=== PATIENT | female | born 1965 | race Caucasian/White ===

== ENCOUNTER 2017-12-06 07:41 | Emergency (ER) | payer MEDICAID, SELFPAY ==
[2017-12-06 08:00] VITALS: BP 125/46; PULSE 121; RESP 22; TEMP 35; O2SAT 95; BMI 22.7
[2017-12-06 09:12] LABS: Adenovirus,PCR Not Detected (NotDetected); Bordetella Pertussis Not Detected (NotDetected); Chlamydophila Pneumoniae, PCR Not Detected (NotDetected); Coronavirus 229E Not Detected (NotDetected); Coronavirus NL63 Not Detected (NotDetected); Coronavirus OC43 Not Detected (NotDetected); Coronovirus HKU1,PCR Not Detected (NotDetected); Human Metapneumovirus Not Detected (NotDetected); Influenza A, PCR Not Detected (NotDetected); Influenza AH1, 2009 Not Detected (NotDetected); Influenza AH1, PCR Not Detected (NotDetected); Influenza AH3,PCR Not Detected (NotDetected); Mycoplasma Pneumoniae, PCR Not Detected (NotDected); Parainfluenza 1, PCR Not Detected (NotDetected); Parainfluenza 2, PCR Not Detected (NotDetected); Parainfluenza 3, PCR Not Detected (NotDetected); Parainfluenza 4, PCR Not Detected (NotDetected); Respiratory Syncytial Virus Not Detected (NotDetected); Rhinovirus/Enterovirus Not Detected (NotDetected)
--- NOTE | 2017-12-06 09:22 | HMH.EDGENADL ---
ED Disposition Clinical Impression: Viral syndrome, Influenza A virus not detected, Tobacco use Disposition: Home, Self-Care Condition on Discharge: Good Additional Instructions: I discussed with the patient the possibility of her being flu positive with with the test being negative due to her exposure boyfriend for the last 4 days. She is agreeable for undergoing respiratory panel and follow-up with a primary care physician she verbalized understanding. He was willing to start medications. 1-stop smoking. 2-start Tamiflu soon as possible. 3-amoxacillin 500 3 times daily to prevent secondary bacterial infection. 4--Tessalon Perles as needed for cough. 5-Motrin 600 every 6 as needed for body aches. 6-follow-up with Dr. Church in a.m. on her respiratory panel results. 7-to return if not better or feeling worse for reexamination. Prescriptions: Benzonatate [Tessalon Perle 100mg Cap] 100 mg PO Q4HP PRN #21 cap PRN Reason: Cough Ibuprofen [Motrin 600mg Tablet] 600 mg PO Q6HP PRN #20 tab PRN Reason: Moderate Pain Oseltamivir Phosphate [Tamiflu 75mg Capsule] 75 mg PO BID #10 cap Referrals: Mesfin Church MD [Primary Care Provider] - - Critical Care Critical Care Time: No Attestation: On 12/06/17, the high probability of a clinically significant, sudden or life threatening deterioration of the following system(s) required my full and direct attention, intervention and personal management. The time I documented below is in addition to time spent performing reported procedures but includes the following listed in this critical care notation. Medical Decision Making - Medical Records Medical records reviewed: Yes: I reviewed the patient's medical records. Vital Signs: 12/06/17 08:00 Temperature 95 F L Temperature Source Oral Pulse Rate [Right Brachial] 121 H Respiratory Rate 22 Blood Pressure [Right Arm] 125/46 Blood Pressure Mean [Right Arm] 72 Blood Pressure Source [Right Arm] Automatic Cuff Blood Pressure Position [Right Arm] Sitting 02 Sat by Pulse Oximetry 95 Oxygen Delivery Method Room Air - Lab Data Lab Results 12/06/17 08:15: Influenza Type A Ag Negative, Influenza Type B Ag Negative Orders (Tests/Meds): ORDERS Category Date Time Status Upper Respiratory Panel, PCR Stat Lab 12/06/17 08:27 Received - Mike Inquiry Pt receiving controlled substance: No Mike was queried for this patient: No Medical Decision Making Narrative: The patient underwent a negative influenza screen. After discussion with the patient with her exposure to her boyfriend who she claims tested positive for flu. Commended her to start on a Tamiflu because she still less than 72 hours and she should respond favorably to the antiviral medication. She requested something for the body aches and the cough. Given ibuprofen and Tessalon Perles. Is instructed to follow-up with a primary care physician on the result of the result of her respiratory panel. She is to observe for worsening symptoms or no relief over the next 1 or 2 days to return for reevaluation, she verbalized understanding. General Adult HPI - General Chief complaint: Fever Stated complaint: fever,cough,aches all over,vomiting,headache Mode of Arrival: Ambulatory Limitations: No Limitations Description of Symptoms (Recalled from ER Triage Doc. by RN): ESCOBEDO AND FE3VER, COUGH, TEMP - History of Present Illness HPI narrative: 52 years old white female smoker with no significant past medical history. Her boyfriend got sick 4 days ago and was seen in the ER yesterday. Was tested positive for the flu. 36 hours ago she started developing fever and woke up yesterday morning with fever headache, body aches and nonproductive cough. She denies vomiting diarrhea shortness of breath palpation. She denies having neck stiffness or neck rigidity. Denies having sore throat , numbness or tingling of the upper or lower extrem
--- NOTE | 2017-12-06 09:25 | ED_ITS ---
ED Disposition Clinical Impression: Viral syndrome, Influenza A virus not detected, Tobacco use Disposition: Home, Self-Care Condition on Discharge: Good Additional Instructions: I discussed with the patient the possibility of her being flu positive with with the test being negative due to her exposure boyfriend for the last 4 days. She is agreeable for undergoing respiratory panel and follow-up with a primary care physician she verbalized understanding. He was willing to start medications. 1-stop smoking. 2-start Tamiflu soon as possible. 3-amoxacillin 500 3 times daily to prevent secondary bacterial infection. 4--Tessalon Perles as needed for cough. 5-Motrin 600 every 6 as needed for body aches. 6-follow-up with Dr. Church in a.m. on her respiratory panel results. 7-to return if not better or feeling worse for reexamination. Prescriptions: Benzonatate [Tessalon Perle 100mg Cap] 100 mg PO Q4HP PRN #21 cap PRN Reason: Cough Ibuprofen [Motrin 600mg Tablet] 600 mg PO Q6HP PRN #20 tab PRN Reason: Moderate Pain Oseltamivir Phosphate [Tamiflu 75mg Capsule] 75 mg PO BID #10 cap Referrals: Mesfin Church MD [Primary Care Provider] - - Critical Care Critical Care Time: No Attestation: On 12/06/17, the high probability of a clinically significant, sudden or life threatening deterioration of the following system(s) required my full and direct attention, intervention and personal management. The time I documented below is in addition to time spent performing reported procedures but includes the following listed in this critical care notation. Medical Decision Making - Medical Records Medical records reviewed: Yes: I reviewed the patient's medical records. Vital Signs: 12/06/17 08:00 Temperature 95 F L Temperature Source Oral Pulse Rate [Right Brachial] 121 H Respiratory Rate 22 Blood Pressure [Right Arm] 125/46 Blood Pressure Mean [Right Arm] 72 Blood Pressure Source [Right Arm] Automatic Cuff Blood Pressure Position [Right Arm] Sitting 02 Sat by Pulse Oximetry 95 Oxygen Delivery Method Room Air - Lab Data Lab Results 12/06/17 08:15: Influenza Type A Ag Negative, Influenza Type B Ag Negative Orders (Tests/Meds): ORDERS Category Date Time Status Upper Respiratory Panel, PCR Stat Lab 12/06/17 08:27 Received - Mike Inquiry Pt receiving controlled substance: No Mike was queried for this patient: No Medical Decision Making Narrative: The patient underwent a negative influenza screen. After discussion with the patient with her exposure to her boyfriend who she claims tested positive for flu. Commended her to start on a Tamiflu because she still less than 72 hours and she should respond favorably to the antiviral medication. She requested something for the body aches and the cough. Given ibuprofen and Tessalon Perles. Is instructed to follow-up with a primary care physician on the result of the result of her respiratory panel. She is to observe for worsening symptoms or no relief over the next 1 or 2 days to return for reevaluation, she verbalized understanding. General Adult HPI - General Chief complaint: Fever Stated complaint: fever,cough,aches all over,vomiting,headache Mode of Arrival: Ambulatory Limitations: No Limitations Description of Symptoms (Recalled from ER Triage Doc. by RN): ESCOBEDO AND FE3V
[2017-12-06 09:44] VITALS: BP 122/80; PULSE 75; RESP 18; TEMP 37.8
[2017-12-06 10:29] LABS: Influenza B, PCR Detected (NotDetected)
== END 2017-12-06 09:43 | disposition home or self-care (01) ==
PROVIDERS: Emergency Provider Emergency Medicine; Family Provider Emergency Medicine; PCP Emergency Medicine
DX: B34.9 Viral infection, unspecified (principal); F17.210 Nicotine dependence, cigarettes, uncomplicated; Z79.899 Other long term (current) drug therapy
CPT/HCPCS: 87275; 87276; 87486; 87581; 87633; 87798; 99282

== ENCOUNTER → 2019-03-30 18:10 | Outpatient (CLI) | payer MEDICAID, SELFPAY ==
[2019-03-30 18:59] LABS: Basophils # 0.1 K/mm3 (0-0.2); Basophils % 1.2 % (0.1-2.0); Eosinophils # 0.1 K/mm3 (0.0-0.4); Eosinophils % 0.6 % (0.1-12.0); Hematocrit 45.5 % (37.0-47.0); Lymphocytes # 3.2 K/mm3 (0.7-4.5); Lymphocytes % 29.4 % (10-50); Mean Corpuscular HGB Conc 35.1 g/dL (31.8-35.4); Mean Corpuscular Volume 94.1 fl (81-99); Mean Platelet Volume 8.2 fl (7.4-10.4); Monocytes # 0.5 K/mm3 (0.1-1.0); Monocytes % 4.4 % (1.7-9.3); Neutrophils % 64.4 % (37.0-80.0); Platelet Count 240 K/mm3 (142-424); Red Blood Count 4.84 M/mm3 (4.20-5.40); Red Cell Distribution Width 12.3 % (11.5-17.5); White Blood Count 10.9 K/mm3 (4.8-10.8)
[2019-03-30 19:21] LABS: Alanine Aminotransferase 45 U/L (12-78); Albumin Level 4.4 gm/dL (3.4-5.0); Albumin/Globulin Ratio 1.3 (1.1-1.8); Alkaline Phosphatase 109 U/L (46-116); Aspartate Amino Transferase 26 U/L (15-37); Bilirubin,Total 0.4 mg/dL (0.2-1.0); Blood Urea Nitrogen 8 mg/dL (7-18); Calcium 9.7 mg/dL (8.5-10.1); Carbon Dioxide 24 mmol/L (21.0-32.0); Chloride 100 mmol/L (98-107); Chol/HDL Ratio 4.6 (1-3.5); Cholesterol 178 mg/dL (140-200); Creatinine,Serum 0.65 mg/dL (0.55-1.02); Estimated Glomerular Filt Rate 95 ml/min (>60); GFR (African American) 115 ML/MIN (>60); Globulin 3.4 gm/dl (1.3-3.2); Glucose 102 mg/dL (74-106); HDL Cholesterol 39 mg/dL (29-89); LDL Cholesterol 106 mg/dL (0-130); Sodium 137 mmol/L (136-145); T4 (Thyroxine) 11.9 ug/dl (4.7-13.3); Thyroid Stimulating Hormone 0.27 uIU/ml (0.358-3.740); Total Protein,Serum 7.8 gm/dL (6.4-8.2); Triglycerides 167 mg/dL (30-200); VLDL Cholesterol 33 mg/dL (0-40)
[2019-04-01 12:34] LABS: Vitamin D 25 Hydroxy 40.4 ng/mL (30.0-100.0)
[2019-04-04 23:06] LABS: HCV Genotype Charge YES; Hepatitis C Genotype 1a (.)
== END ==
PROVIDERS: Visit Provider Physician Assistant
DX: R53.83 Other fatigue (principal); B19.20 Unspecified viral hepatitis C without hepatic coma
CPT/HCPCS: 80053; 80061; 82652; 84436; 84443; 85025; 87522; 87902

== ENCOUNTER 2019-04-08 11:15 | Outpatient (RCR) | payer MEDICAID, SELFPAY ==
--- NOTE | 2019-04-08 14:10 | HMH.OTOPEV ---
OT Inpatient Evaluation Rehab OT Outpatient Eval Start: 04/08/19 14:01 Freq: Status: Active Protocol: Document 04/08/19 14:02 RMCRYSTAL (Rec: 04/08/19 14:10 [id number] Electronically Signed By Rodríguez Sequeira OT 04/08/19 14:02 Outpatient Therapy Subjective History Subjective History Pt is a 53 year old female who reports to therapy for initial evaluation to right shoulder. Pt explained her shoulder has been hurting her for ~2 years. Pt does not recall a specific injury that would have caused her pain to begin. Pt demonstrates with significant decreased AROM and strength. Pt will continue to be seen twice a week in order to address all deficits. Chief Complaint Pain,Weakness Symptom Type Ache,Throb,Sharp,Dull,Stabbing ,Shooting Symptoms Relieved By Rest/Positioning Symptoms Aggravated By Physical Activity,Lifting Prior Functional Limitations None Current Functional Limitations Reaching,Lifting,Housework, Dressing,Driving,Sleeping, Recreation Activity,Bending/ Stooping Symptom Description Constant but Variable Level of pain today (0-10) 4 Pain scale - at its best (0-10) 2 Pain scale - at its worst (0-10) 10 Shoulder/Elbow Eval Shoulder Objective Measurements Shoulder ROM Right Shoulder ROM Limitations Muscle Weakness,Pain Shoulder Abduction Active Range of 50 degrees Motion (degrees) Shoulder Flexion Active Range of Motion 60 degrees (degrees) Query Text: Shoulder External Rotation Active Range 30 degrees of Motion (degrees) Shoulder Internal Rotation Active Range 30 degrees of Motion (degrees) pain with active ROM shoulder exam right standard pain with passive ROM shoulder exam right standard decreased ROM shoulder exam standard right full ROM shoulder exam standard left Shoulder MMT Shoulder Abduction Strength Grade 3- Fair- Shoulder Extension Strength Grade 3 Fair Shoulder Flexion Strength Grade 3 Fair Shoulder External Rotation Strength 3 Fair Grade Shoulder Internal Rotation Strength 3 Fair Grade Shoulder Strength Patient Testing Sitting Position Elbow Objective Measurements OT Outpatie
== END 2019-04-08 11:20 | disposition home or self-care (01) ==
LOC: OT 11:15
PROVIDERS: Visit Provider Physician Assistant
DX: M25.511 Pain in right shoulder (principal)
CPT/HCPCS: 97166

== ENCOUNTER → 2019-04-26 16:02 | Outpatient (CLI) | payer MEDICAID, SELFPAY ==
[2019-04-26 18:50] LABS: Free T4 (Free Thyroxine) 1.08 ng/dl (0.76-1.46); Thyroid Stimulating Hormone 0.54 uIU/ml (0.358-3.740)
== END ==
PROVIDERS: Visit Provider Physician Assistant
DX: R79.89 Other specified abnormal findings of blood chemistry (principal)
CPT/HCPCS: 36415; 84439; 84443

== ENCOUNTER 2021-04-01 14:17 | Emergency (ER) | payer MEDICAID, SELFPAY ==
[2021-04-01 14:31] VITALS: BP 126/62; PULSE 86; RESP 17; TEMP 36.9; O2SAT 98; BMI 25.8
[2021-04-01 14:40] LABS: Apearance,Urine Clear (Clear); Color,Urine Dark Yellow (Yellow); PH,Urine 5.5 (5.0-8.5)
[2021-04-01 14:41] LABS: Blood, Urine Negative (Negative); Glucose,Urine (UA) Negative (Negative); Ketones,Urine TRACE (Negative); Protein,Urine 2+ (Negative); Specific Gravity, Urine 1.025 (1.005-1.030)
[2021-04-01 14:42] LABS: Bilirubin,Urine 1+ (Negative); UTC Leukocyte Esterase,Urine Negative (Negative); UTC Nitrate,Urine Negative (Negative); Urobilinogen,Urine 4 EU/dl (0.2)
[2021-04-01 14:45] VITALS: BP 126/62; PULSE 87; RESP 17; TEMP 36.9; O2SAT 98
--- NOTE | 2021-04-01 14:48 | HMH.EDUTC ---
[facility] [place] Condition on Discharge: Good <Radha Rodriguez - Last Filed: 04/01/21 17:49> Condition on Discharge: Good Time of Disposition: 17:00 <Iraj Mancini - Last Filed: 04/01/21 21:19> Clinical Impression: Right lower quadrant abdominal pain, Diverticulitis Disposition: Home, Self-Care Instructions: Diverticulitis, Acute Abdominal Pain Additional Instructions: Please increase your fiber intake Please take stool softeners as needed for constipation If symptoms persist or worsen, please follow-up with your PCP Prescriptions: Ciprofloxacin/Ciprofloxa HCl [Ciprofloxacin ER 500 mg Tab] 500 mg PO BID 10 Days #20 tab Prescription Printed metroNIDAZOLE [Flagyl 500mg Tablet] 500 mg PO Q8H 10 Days #30 tab Prescription Printed Referrals: Provider,Referral, MD [Primary Care Provider] - Medical Decision Making - Medical Records Medical records reviewed: Yes: I reviewed the patient's medical records. - Lab Data Lab results reviewed: Yes: I reviewed the patient's lab results. Result diagrams: 04/01/21 15:00 04/01/21 15:00 - CT Data CT Scan: Abdomen, Pelvis Time Received: 17:[address] Reviewed: Yes: I have reviewed the patient's CT results, I have viewed the radiologist's interpretation <Radha Rodriguez - Last Filed: 04/01/21 17:49> - Medical Records Medical records reviewed: No: I reviewed the patient's medical records. - Mike Inquiry Pt receiving controlled substance: No - Lab Data Lab results reviewed: Yes: I reviewed the patient's lab results. Result diagrams: 04/01/21 15:00 04/01/21 15:00 - CT Data CT Scan: Abdomen, Pelvis ED CT Reviewed: Yes: I have reviewed the patient's CT results, I have viewed the radiologist's interpretation Preliminary Findings: Abnormal <Iraj Mancini - Last Filed: 04/01/21 21:19> Vital Signs: 04/01/21 14:31 04/01/21 14:45 04/01/21 15:55 Temperature 98.4 F 98.4 F 97.9 F Temperature Source Oral Oral Pulse Rate 87 Pulse Rate [Right] 86 82 Respiratory Rate 17 17 16 Blood Pressure 126/62 Blood Pressure [Right Arm] 126/62 113/83 Blood Pressure Mean Blood Pressure Mean [Right Arm] 83 93 Blood Pressure Source [Right Arm] Automatic Cuff Blood Pressure Position [Right Arm] Sitting 02 Sat by Pulse Oximetry 98 98 Oxygen Delivery Method Room Air Room Air 04/01/21 16:31 04/01/21 18:27 Temperature 97.9 F Temperature Source Oral Pulse Rate 81 75 Pulse Rate [Right] Respiratory Rate 18 18 Blood Pressure 120/78 124/84 Blood Pressure [Right Arm] Blood Pressure Mean 95 Blood Pressure Mean [Right Arm] Blood Pressure Source [Right Arm] Blood Pressure Position [Right Arm] 02 Sat by Pulse Oximetry 96 Oxygen Delivery Method Room Air - Lab Data Lab Results 04/01/21 14:38: Urine Color Dark yellow, Urine Appearance Clear, Urine pH 5.5, Ur Specific [place] 1.025, Urine Protein 2+, Urine Glucose (UA) Negative, Urine Ketones Trace, Urine Blood Negative, Urine Nitrate Negative, Urine Bilirubin 1+ A, Urine Urobilinogen 4, Ur Leukocyte Esterase Negative 04/01/21 15:00: WBC 10.9 H, RBC 4.79, Hgb 15.5, Hct 44.4, MCV 92.6, MCH 32.4 H, MCHC 35.0, RDW 12.7, Plt Count 228, MPV 8.2, Neut % (Auto) 66.3, Lymph % (Auto) 25.6, [place] % (Auto) 5.6, Eos % (Auto) 1.2, Baso % (Auto) 1.3, Neut # (Auto) 7.2, Lymph # (Auto) 2.8, Pine # (Auto) 0.6, Eos # (Auto) 0.1, Baso # (Auto) 0.1 04/01/21 15:00: Sodium 136, Potassium 4.0, Chloride 101, Carbon Dioxide 26, Anion Gap 13.0, BUN 6 L, Creatinine 0.50 L, Estimated Creat Clear 148, Estimated GFR 128, Est GFR ( Amer) 154, Glucose 121 H, Calcium 9.6, Total Bilirubin 0.8, AST 34, ALT 30, Alkaline Phosphatase 99, Total Protein 8.6 H, Albumin 4.9, Globulin 3.7 H, Albumin/Globulin Ratio 1.3, Amylase 55, Lipase 48 Orders (Tests/Meds): ED MEDICATIONS Discontinued Medications Generic Name Dose Route Start Last Admin Trade Name Freq PRN Reason Stop Dose Admin Iopamidol 75 ml 04/01/21 16:53 04/01/21 16:54 I
[2021-04-01 15:12] LABS: Basophils # 0.1 K/mm3 (0-0.2); Basophils % 1.3 % (0.1-2.0); Eosinophils # 0.1 K/mm3 (0.0-0.4); Eosinophils % 1.2 % (0.1-12.0); Hematocrit 44.4 % (37.0-47.0); Hemoglobin 15.5 g/dL (12.2-16.2); Lymphocytes # 2.8 K/mm3 (0.7-4.5); Lymphocytes % 25.6 % (10-50); Mean Corpuscular Hemoglobin 32.4 pg (27.0-31.2); Mean Corpuscular Volume 92.6 fl (81-99); Mean Platelet Volume 8.2 fl (7.4-10.4); Monocytes # 0.6 K/mm3 (0.1-1.0); Monocytes % 5.6 % (1.7-9.3); Neutrophils # 7.2 K/mm3 (1.8-7.8); Neutrophils % 66.3 % (37.0-80.0); Platelet Count 228 K/mm3 (142-424); Red Blood Count 4.79 M/mm3 (4.20-5.40); Red Cell Distribution Width 12.7 % (11.5-17.5); White Blood Count 10.9 K/mm3 (4.8-10.8)
[2021-04-01 15:15] LABS: Chloride 101 mmol/L (98-107); Sodium 136 mmol/L (136-145)
[2021-04-01 15:18] LABS: Alanine Aminotransferase 30 U/L (12-78); Alkaline Phosphatase 99 U/L (38-126); Amylase 55 U/L (30-110); Aspartate Amino Transferase 34 U/L (14-36); Bilirubin,Total 0.8 mg/dl (0.2-1.3); Blood Urea Nitrogen 6 mg/dl (7-17); Carbon Dioxide 26 mmol/L (22.0-30.0); Creatinine Clearance Estimated 148 mL/min (50-200); Estimated Glomerular Filt Rate 128 ml/min (>60); GFR (African American) 154 ML/MIN (>60)
[2021-04-01 15:19] LABS: Albumin Level 4.9 g/dl (3.5-5.0); Albumin/Globulin Ratio 1.3 (1.1-1.8); Calcium 9.6 mg/dl (8.4-10.2); Globulin 3.7 g/dL (1.3-3.2); Glucose 121 mg/dl (74-100); Lipase 48 U/L (23-300); Total Protein,Serum 8.6 g/dl (6.3-8.2)
--- NOTE | 2021-04-01 15:53 | CT_ITS ---
PROCEDURE INFORMATION: Exam: CT Abdomen And Pelvis With Contrast Exam date and time: 04/01/2021 3:53 PM Age: 55 years old Clinical indication: Abdominal pain; Generalized; Additional info: Rlq TECHNIQUE: Imaging protocol: Computed tomography of the abdomen and pelvis with contrast. Radiation optimization: All CT scans at this facility use at least one of these dose optimization techniques: automated exposure control; mA and/or kV adjustment per patient size (includes targeted exams where dose is matched to clinical indication); or iterative reconstruction. Contrast material: ISOVUE; Contrast volume: 75 ml; Contrast route: IV; COMPARISON: PTV US PELVIS-TRANSVAGINAL ONLY 05/26/2014 1:54 PM FINDINGS: Liver: Normal. No mass. Gallbladder and bile ducts: Normal. No calcified stones. No ductal dilation. Pancreas: Normal. No ductal dilation. Spleen: Normal. No splenomegaly. Adrenal glands: Normal. No mass. Kidneys and ureters: Normal. No hydronephrosis. Stomach and bowel: Focal inflammatory changes are present in the pericolic fat adjacent to inflamed diverticulum in the sigmoid colon. Findings are compatible with diverticulitis. Appendix: No evidence of appendicitis. Intraperitoneal space: No abscess or free air identified. Vasculature: Vascular calcifications are present. Lymph nodes: Unremarkable. No enlarged lymph nodes. Urinary bladder: Unremarkable as visualized. Reproductive: Status post hysterectomy. Bones/joints: Unremarkable. No acute fracture. Soft tissues: Unremarkable. IMPRESSION: 1. Focal inflammatory changes are present in the pericolic fat adjacent to inflamed diverticulum in the sigmoid colon. Findings are compatible with diverticulitis. 2. Remainder of findings as described above.
[2021-04-01 15:55] VITALS: BP 113/83; PULSE 82; RESP 16; TEMP 36.6; O2SAT 98; BMI 25.8
[2021-04-01 16:31] VITALS: BP 120/78; PULSE 81; RESP 18; O2SAT 96
[2021-04-01 18:27] VITALS: BP 124/84; PULSE 75; RESP 18; TEMP 36.6; O2SAT 97
== END 2021-04-01 18:27 | disposition home or self-care (01) ==
LOC: ER 14:29 → UTC 14:29 → ER 15:51
PROVIDERS: Nurse Practitioner Family; Emergency Provider Emergency Medicine
DX: K57.92 Diverticulitis of intestine, part unspecified, without perforation or abscess without bleeding (principal); R11.0 Nausea; F17.210 Nicotine dependence, cigarettes, uncomplicated
CPT/HCPCS: 74177; 80053; 81003; 82150; 83690; 85025; 87086; 99284; Q9967

== ENCOUNTER 2023-09-02 15:09 | Emergency (ER) | payer MEDICAID, SELFPAY ==
--- NOTE | 2023-09-02 15:14 | XR_ITS ---
FINAL REPORT CLINICAL HISTORY: PAIN COMPARISON: None FINDINGS: RIGHT SHOULDER Three views demonstrate no acute fracture or dislocation. The joint spaces appear normal. The visualized bony structures are well aligned. No soft tissue abnormality is seen. IMPRESSION: No acute process. Reviewed, Interpreted and Dictated by Arsh Henry III, MD Transcribed by Lavonen Hopson Authenticated and [facility]
[2023-09-02 16:20] VITALS: BP 111/85; PULSE 77; RESP 21; TEMP 36.8; O2SAT 98; BMI 23.5
--- NOTE | 2023-09-02 16:36 | EXP.UTC ---
Discharge Plan Disposition Patient Disposition: Home, Self-Care Condition: Good Prescriptions Prescriptions: New methocarbamol 500 mg tablet 500 mg PO TID PRN (Reason: muscle spasm) Qty: 15 0RF Referrals Follow up/Referrals: Raymundo Kennedy DO [Staff Physician] - See instructions Provider,Referral, [Primary Care Provider] - See instructions Activity Restrictions/Add. Instructions Additional Instructions/Restrictions: *Ibuprofen bebeto 6 hours with meal as needed for pain/inflammation *Remember you had a Toradol shot in the clinic today, which is similar to Motrin *Not additional anti-inflammatory like motrin, aleve, advil with the above amount of ibuprofen. You can still take Tylenol every 4 hours as needed if you need something else for pain *Ice 20 minutes every 2 hours for the first 48 hours after the initial injury followed by moist heat every 20 minutes 3-4 times a day to affected area *Muscle relaxer every 8 hours as needed for muscle spasms but remember, it WILL cause drowsiness You cannot take it and drive, operate machinery or care for small children. *Keep this area active, no movement leads to more stiffness, However take it easy and avoid heavy lifting pushing or pulling *Follow up with you family doctor if no improvement for further treatment Clinical Impressions Clinical Impression: Right shoulder pain Qualifiers: Chronicity: acute Qualified Code(s): M25.511 - Pain in right shoulder Instructions Patient Instructions: DI for Shoulder Pain, DI for Muscle Spasm Discharge ED Provider: Catie Torres [facility] [place] General Stated complaint: AO10 RT shoulder pain Mode of Arrival: Ambulatory Source of Information: Patient Limitations: No Limitations Time Seen by Provider: 09/02/23 16:20 Description of Symptoms (Recalled from Triage Doc. by RN): PATIENT C/O PAIN TO RIGHT SHOULDER THAT STARTED AFTER SHE FELL ON FRIDAY AFTERNOON HEENT Symptoms (Recalled from RN notes): No Resp Symptoms (Recalled from RN notes): No Skin Symptoms (Recalled from RN notes): No MS Symptoms (Recalled from RN notes): Yes Functional Status (Recalled from RN notes): WNL History of Present Illness Provider Complaint: Patient states that he foot slipped on the steps on Friday and she fell and landed on her right shoulder States that ever since she has been having muscle spasms in the back of her shoulder and pain in shoulder area with movement States that today she was still having pain with movement so she came in to get it checked Denies any other injury Related Data Previous Rx's Medication Instructions Recorded methocarbamol 500 mg tablet 500 mg PO TID PRN muscle spasm #15 09/02/23 tabs Allergies Allergy/AdvReac Type Severity Reaction Status Date / Time No Known Allergies Allergy Verified 03/30/19 14:31 Worker's Comp Is this a Worker's Comp case?: No [facility] Disclaimer: The information contained in this section may have been updated after the patient was seen, as this information can be updated by other users. Medical History (Updated 09/02/23 @ 16:55 by Catie Torres APRN) Chronic pain Fatigue Hepatitis C History of alcohol abuse Right shoulder pain Social History Smoking Status: Current every day smoker tobacco type: cigarettes packs per day: 1 alcohol intake: never substance use type: denies use current occupational status: other Travel in the last 8 weeks: None ROS Obtained: Yes All systems reviewed & no additional complaints except as documented and Yes Systems reviewed as appropriate & no additional complaints except as documented Constitutional Constitutional: Reports system reviewed and no additional complaints, except as documented and Reports as per HPI ENT Ears, Nose, Mouth, and Throat: Reports system reviewed and no additional complaints, except as documented and Reports as per HPI Cardiovascular Cardiovascular: Reports system reviewed and no addit
[2023-09-02 16:57] VITALS: BP 111/85; PULSE 77; RESP 21; TEMP 36.8; O2SAT 98
== END 2023-09-02 17:16 | disposition home or self-care (01) ==
PROVIDERS: Emergency Provider Nurse Practitioner
DX: M25.511 Pain in right shoulder (principal); W19.XXXA Unspecified fall, initial encounter; F17.210 Nicotine dependence, cigarettes, uncomplicated
CPT/HCPCS: 73030; 96372; 99204; 99212; G0463

== ENCOUNTER 2024-02-06 14:49 | Emergency (ER) | payer MEDICAID, SELFPAY ==
[2024-02-06] VITALS (21 sets, daily range): BP systolic 124–187; BP diastolic 76–100; PULSE 73–142; RESP 12–20; TEMP 36.6; O2SAT 92–99; BMI 23.5
--- NOTE | 2024-02-06 15:23 | XR_ITS ---
FINAL REPORT CLINICAL HISTORY: FOOSH, obvious wrist deformity COMPARISON: None FINDINGS: RIGHT WRIST THREE VIEW FINDINGS: Three views show severely comminuted distal radial fracture extending into the joint with dorsal angulation. There is ulnar styloid process fracture. IMPRESSION: Acute fractures as above. Reviewed, Interpreted and Dictated by Alesha Conway MD Transcribed by MADISYN Arciniega Authenticated and [facility]
--- NOTE | 2024-02-06 15:23 | XR_ITS ---
FINAL REPORT CLINICAL HISTORY: FOOSH, obvious wrist deformity COMPARISON: None FINDINGS: RIGHT HAND Three views show severely comminuted distal radial fracture extending into the joint with dorsal angulation. There is ulnar styloid process fracture. IMPRESSION: Acute fractures as above Reviewed, Interpreted and Dictated by Alesha Conway MD Transcribed by MADISYN Arciniega Authenticated and . [facility]
--- NOTE | 2024-02-06 15:23 | XR_ITS ---
FINAL REPORT CLINICAL HISTORY: FOOSH, obvious wrist deformity FINDINGS: 2 views of the right forearm were obtained. Three views show severely comminuted distal radial fracture extending into the joint with dorsal angulation. There is ulnar styloid process fracture. The radial and ulnar shafts are intact. IMPRESSION: Acute fractures as above. Reviewed, Interpreted and Dictated by Alesha Conway MD Transcribed by MADISYN Arciniega Authenticated and [facility]
--- NOTE | 2024-02-06 15:23 | XR_ITS ---
FINAL REPORT CLINICAL HISTORY: FOOSH, obvious wrist deformity COMPARISON: none FINDINGS: RIGHT ELBOW 3 views were obtained. There is no acute fracture or dislocation. There is no joint effusion. The joint spaces are intact. There is no soft tissue abnormality. IMPRESSION: No acute bony abnormality Reviewed, Interpreted and Dictated by Alesha Conway MD Transcribed by MADISYN Arciniega Authenticated and [facility]
--- NOTE | 2024-02-06 15:25 | HMH.EDGENADL ---
Discharge Plan Disposition Patient Disposition: Home, Self-Care Condition: Good Prescriptions Prescriptions: No Action methocarbamol 500 mg tablet 500 mg PO TID PRN (Reason: muscle spasm) Qty: 15 0RF Referrals Follow up/Referrals: Raymundo Kennedy DO [Staff Physician] - See instructions Provider,Referral, [Primary Care Provider] - See instructions Activity Restrictions/Add. Instructions Additional Instructions/Restrictions: You were evaluated in the emergency department today. Please keep your splint on, clean, and dry. Keep your arm elevated to help reduce swelling. Take the tramadol provided to you as needed for pain every 6 hours. He may also take Tylenol and ibuprofen in addition to this every 4 and every 6 hours respectively. Follow-up closely with orthopedics. I provided you with information for Dr. Kennedy, who is currently out of town. I spoke with Dr. Wadsworth in [place] who can help arrange close follow-up as well. They should call you on Friday. Return to the emergency department for new or worsening symptoms. Clinical Impressions Clinical Impression: Closed fracture of right distal radius, Fracture of right ulnar styloid Instructions Patient Instructions: DI for Wrist Fracture, How to Take Care of Your Splint, DI for Moderate Sedation Discharge ED Provider: Narda Ball General Adult HPI General Chief complaint: Extremity Injury, Upper Stated complaint: broken right wrist Time Seen by Provider: 02/06/24 15:08 Mode of Arrival: Ambulatory Source of Information: Patient Limitations: No Limitations Description of Symptoms (Recalled from ER Triage Doc. by RN): pt states around 1415 she was attempting to load her doughnut batter mixer in the back of a truck. pt states she fell backwards and tried to catch herself with her R wrist. pts R wrist is visibly deformed. Radial pulses palpable and strong. pt states the pain is sharp, throbbing, and a 10/10. pt reports taking a gram of tylenol and 7.5mg percocet, without any relief. History of Present Illness HPI narrative: This patient is a 58-year-old female with history of hepatitis C and tobacco dependence presenting with concern for right wrist injury. Patient reports that she was loading up her lawnmower when she fell backwards. She was at ground-level when she fell backwards onto an outstretched right upper extremity. She felt immediate pain with deformity to her right wrist. She also has a very small laceration to her left thumb, as she believes she hit it on a rock or something. She denies any head injury, loss of consciousness, or other injuries. She does not take any blood thinners. She was well prior to the fall. She states that she is having severe pain in her right wrist at this time that radiates all the way up into her arm. No other concerns. Related Data Previous Rx's Medication Instructions Recorded methocarbamol 500 mg tablet 500 mg PO TID PRN muscle spasm #15 09/02/23 tabs Allergies Allergy/AdvReac Type Severity Reaction Status Date / Time No Known Allergies Allergy Verified 03/30/19 14:31 [facility] Disclaimer: The information contained in this section may have been updated after the patient was seen, as this information can be updated by other users. Medical History History of alcohol abuse Chronic pain Right shoulder pain Fatigue Hepatitis C Social History Smoking Status: Current every day smoker tobacco type: cigarettes packs per day: 1 alcohol intake: never substance use type: denies use current occupational status: other Travel in the last 8 weeks: None ROS Obtained: Yes All systems reviewed & no additional complaints except as documented Physical Exam General General appearance: alert and in no apparent distress Head Head exam: atraumatic and normocephalic Eye Eye exam: Present normal appearance, PERRL and EOMI ENT ENT exam: Present normal exam, normal oropharynx, mucous membranes moist and normal external ear exam Neck Neck exam: Present normal inspection, full ROM and trachea midline; Absent tenderness Chest Chest inspection: Present normal inspection and symmetric chest wall rise; Absent tenderness Respiratory Respiratory exam: Present normal lung sounds bilaterally; Absent respiratory distress, wheezes, stridor or accessory muscle use Cardiovascular Cardiovascular exam: Present regular rate and normal rhythm Abdominal Exam Abdominal exam: Present soft; Absent distention, tenderness or guarding Extremities Exam Extremities exam: Present full ROM, tenderness, normal capillary refill and other (Obvious deformity to the right wrist without open skin wounds. Pulses intact with intact capillary refill and sensation. Limited range of motion secondary to pain. No other injuries noted.); Absent edema Back Exam Back exam: Present normal inspection and full ROM; Absent tenderness Neurological Exam Neurological exam: Present alert, oriented X3, CN II-XII intact and normal gait; Absent motor sensory deficit Psychiatric Psychiatric exam: Present normal affect and normal mood Skin Skin exam: Present warm and dry Medical Decision Making Medical Records Medical records reviewed: Yes I reviewed the patient's medical records. Mike Inquiry Pt receiving controlled substance: Yes Mike was queried for this patient: Yes Risks and benefits of using a controlled substance: were discussed with pt by me Vital Signs: 02/06/24 15:00 02/06/24 15:02 02/06/24 15:31 Temperature 97.9 F Temperature Source Oral Pulse Rate 101 H 90 Pulse Rate [Left] 103 H Respiratory Rate 18 Blood Pressure 125/83 124/85 Blood Pressure [Right Arm] 130/82 Blood Pressure Mean Blood Pressure Mean [Right Arm] 98 Blood Pressure Source [Right Arm] Automatic Cuff Blood Pressure Position [Right Arm] Sitting 02 Sat by Pulse Oximetry 96 96 97 Oxygen Delivery Method Oxygen Flow Rate (LPM) 02/06/24 16:00 02/06/24 16:50 02/06/24 16:55 Temperature Temperature Source Pulse Rate 91 H 76 74 Pulse Rate [Left] Respiratory Rate 16 17 Blood Pressure 143/76 H 157/93 H Blood Pressure [Right Arm] Blood Pressure Mean Blood Pressure Mean [Right Arm] Blood Pressure Source [Right Arm] Blood Pressure Position [Right Arm] 02 Sat by Pulse Oximetry 97 97 98 Oxygen Delivery Method Room Air Oxygen Flow Rate (LPM) 02/06/24 17:00 02/06/24 17:00 02/06/24 17:15 Temperature Temperature Source Pulse Rate 82 142 H Pulse Rate [Left] 73 Respiratory Rate 12 17 19 Blood Pressure 150/86 H 179/89 H Blood Pressure [Right Arm] 157/93 H Blood Pressure Mean Blood Pressure Mean [Right Arm] 114 Blood Pressure Source [Right Arm] Blood Pressure Position [Right Arm] 02 Sat by Pulse Oximetry 97 99 92 L Oxygen Delivery Method Room Air Oxygen Flow Rate (LPM) 02/06/24 17:25 02/06/24 17:30 02/06/24 17:33 Temperature Temperature Source Pulse Rate Pulse Rate [Left] 139 H Respiratory Rate 13 18 18 Blood Pressure 171/98 H 149/94 H Blood Pressure [Right Arm] 179/89 H Blood Pressure Mean Blood Pressure Mean [Right Arm] 119 Blood Pressure Source [Right Arm] Blood Pressure Position [Right Arm] 02 Sat by Pulse Oximetry 94 L Oxygen Delivery Method Nasal Cannula Oxygen Flow Rate (LPM) 2 02/06/24 17:35 02/06/24 17:39 02/06/24 17:40 Temperature Temperature Source Pulse Rate Pulse Rate [Left] 139 H Respiratory Rate 17 16 19 Blood Pressure 165/91 H 138/99 H Blood Pressure [Right Arm] 187/100 H Blood Pressure Mean 111 118 Blood Pressure Mean [Right Arm] 129 Blood Pressure Source [Right Arm] Blood Pressure Position [Right Arm] 02 Sat by Pulse Oximetry 97 99 98 Oxygen Delivery Method Nasal Cannula Nasal Cannula Nasal Cannula Oxygen Flow Rate (LPM) 2 2 2 02/06/24 17:45 02/06/24 17:50 02/06/24 17:55 Temperature Temperature Source Pulse Rate Pulse Rate [Left] Respiratory Rate 13 12 14 Blood Pressure 148/95 H 150/92 H 145/92 H Blood Pressure [Right Arm] Blood Pressure Mean Blood Pressure Mean [Right Arm] Blood Pressure Source [Right Arm] Blood Pressure Position [Right Arm] 02 Sat by Pulse Oximetry Oxygen Delivery Method Oxygen Flow Rate (LPM) 02/06/24 18:01 02/06/24 18:05 02/06/24 19:13 Temperature 98 F Temperature Source Pulse Rate 86 Pulse Rate [Left] Respiratory Rate 14 12 20 Blood Pressure 131/98 H 154/95 H 142/88 H Blood Pressure [Right Arm] Blood Pressure Mean Blood Pressure Mean [Right Arm] Blood Pressure Source [Right Arm] Blood Pressure Position [Right Arm] 02 Sat by Pulse Oximetry 95 Oxygen Delivery Method Room Air Oxygen Flow Rate (LPM) Lab Data Lab results reviewed: Yes I reviewed the patient's lab results. Orders (Tests/Meds): ED MEDICATIONS Discontinued Medications Generic Name Dose Route Start Last Admin Trade Name Freq PRN Reason Stop Dose Admin Acetaminophen 1,000 mg 02/06/24 15:23 02/06/24 15:43 Acetaminophen 500mg Tab PO 02/06/24 15:24 1,000 mg ONCE ONE Administration Lactated Ringer's 500 mls @ 999 mls/hr 02/06/24 17:49 02/06/24 18:11 Lactated Ringer's 1000 Ml Bag IV 02/06/24 18:19 Not Given .Q31M ONE Lactated Ringer's 1,000 mls @ 999 mls/hr 02/06/24 17:52 02/06/24 17:53 Lactated Ringer's 1000 Ml Bag IV 02/06/24 18:52 999 mls/hr .Q1H1M ONE Administration Ketamine HCl 105 mg 02/06/24 17:00 02/06/24 17:52 Ketamine 50mg/1ml Syringe IV 02/06/24 17:01 105 mg ONCE ONE Administration Ketorolac Tromethamine 30 mg 02/06/24 19:03 02/06/24 19:13 Ketorolac 30mg/Ml Vial IV 02/06/24 19:04 30 mg ONCE ONE Administration Morphine Sulfate 4 mg 02/06/24 15:23 02/06/24 15:43 Morphine 4mg/Ml Syringe IV 02/06/24 15:24 4 mg ONCE ONE Administration Ondansetron HCl 4 mg 02/06/24 15:23 02/06/24 15:43 Ondansetron 4mg/2ml Vial IV 02/06/24 15:24 4 mg ONCE ONE Administration Oxycodone HCl 10 mg 02/06/24 17:59 02/06/24 18:04 Oxycodone 5mg Immediate Release Tablet PO 02/06/24 18:00 10 mg ONCE ONE Administration Tetanus/Reduced Diphtheria/Acell Pertussis 0.5 ml 02/06/24 15:25 02/06/24 15:43 Tet/Diphth/Pert-Adult 0.5ml Syringe IM 02/06/24 15:26 0.5 ml .ONCE ONE Administration Tramadol HCl 1 packet 02/06/24 19:01 02/06/24 19:11 Tramadol 50mg Tab Take Home Pack (10) PO 02/06/24 19:02 1 packet ONCE ONE Administration ORDERS Category Date Time Status XR elbow RT min 3V Stat Exams 02/06/24 15:23 Completed XR forearm RT 2V Stat Exams 02/06/24 15:23 Completed XR hand RT min 3V Stat Exams 02/06/24 15:23 Completed XR wrist RT 2V Stat Exams 02/06/24 17:16 Completed XR wrist RT min 3V Stat Exams 02/06/24 15:23 Completed Medical Decision Narrative: In summary, this patient is a 58-year-old female presenting to the Emergency Department for evaluation of right wrist injury. She also has a tiny laceration to her left thumb. Differential diagnoses considered include but are not limited to fracture, strain/sprain, contusion, neurovascular injury, polytrauma. Ruling out the most morbid conditions drove assessment. On exam, patient is neurovascularly intact. No other obvious traumatic injuries except for her tiny left thumb laceration as well as her right wrist injury. Workup included x-rays of the right hand, wrist, forearm, and elbow. She was given IV morphine, Zofran, and oral Tylenol for symptomatic improvement. I independently interpreted x-ray prior to the radiologist read and noted displaced and angulated distal radius and ulnar styloid fractures. Please see their read for final interpretation. Given the patient's significant displaced wrist fracture, I feel she would benefit from procedural sedation for reduction. Patient was consented for this after risks and benefits were explained. She has no prior history of difficult intubation or sedation. Given this, I proceeded with ketamine sedation, which she tolerated very well. No complications. She returned to her preprocedural baseline shortly after. I dependently interpreted postreduction film and noted improved angulation. Please see radiology read for final interpretation. She did complain of continued pain, for which she was given oral oxycodone. She was neurovascularly intact after splinting with improved angulation on x-ray. She still has infection. I had an interactive discussion with Dr. Wadsworth with orthopedics at [place] who advised that the impaction is okay and she can follow-up outpatient. She was provided with a sling as well as a tramadol take-home pack, as pharmacies are closed right now. She was given instructions for supportive management of the fracture, splint care, and strict return precautions. She was discharged with plan for close DOCUMENTATION IMPROVEMENT SPECIALIST follow-up with orthopedics. Procedures Risk/Benefits of Procedure(s) Were Explained: Yes Orthopedic Fracture Reduction Fracture #1: Time Out Performed: Yes Side: right Fracture Reduction Location: radius and ulna Analgesia: procedural sedation Technique: direct manipulation and finger traps Post Reduction X-rays Demonstrate: acceptable reduction (improved alignment with some residual angulation) Post-reduction neuro exam: intact and no change Post-reduction vascular exam: intact and no change Splint Applied: Yes Patient Tolerated Procedure: well and no complications Procedural Sedation Presedation Evaluation: Patient denies any history of difficult intubation or sedation in the past. A heart and lung assessment was performed on this patient at: 16:45 Mallampati Score:: Class II Indication: fracture/dislocation reduction ASA Class: I Preparation: converter supervisor applied, pulse oximeter, capnometry used, supplemental O2 applied, reversal agents at bedside, suction/airway equipment at bedside and IV secured Ketamine: IV Ketamine dose (mg): 105 Patient Tolerated Procedure: well and no complications Complications: none Critical Care Critical Care Time Critical Care Time: No
--- NOTE | 2024-02-06 15:39 | PC.NURSE ---
Xray at BS
[2024-02-06] MEDS: ONDANSETRON 4MG/2ML VIAL 4 MG IV (15:43)
[2024-02-06] MEDS: TET/DIPHTH/PERT-ADULT 0.5ML SYRINGE 0.5 ML IM (15:43)
[2024-02-06] MEDS: MORPHINE 4MG/ML SYRINGE 4 MG IV (15:43)
[2024-02-06] MEDS: ACETAMINOPHEN 500MG TAB 1000 MG PO (15:43)
--- NOTE | 2024-02-06 17:16 | XR_ITS ---
PROCEDURE INFORMATION: Exam: XR Right Wrist Exam date and time: 02/06/2024 4:58 PM Age: 58 years old Clinical indication: Injury or trauma; Fall; Other: Post reduction TECHNIQUE: Imaging protocol: Radiologic exam of the right wrist. Views: 1 or 2 views. COMPARISON: CR XR WRIST RT MIN 3V 02/06/2024 3:28 PM FINDINGS: Bones/joints: Status post reduction and splinting of acute comminuted distal right radius fracture with improved alignment of previously demonstrated dorsal angulation. Distal fracture fragments remain impacted by approximately 2 cm. Fracture of the ulnar styloid process is grossly unchanged. Soft tissues: Unremarkable. IMPRESSION: Status post reduction and splinting of acute comminuted distal right radius fracture with improved alignment of previously demonstrated dorsal angulation. Distal fracture fragments remain impacted by approximately 2 cm.
--- NOTE | 2024-02-06 17:25 | PC.NURSE ---
pt is back to baseline and visiting with her aunt. A&0 X4 GCS 15
[2024-02-06] MEDS: KETAMINE 50MG/1ML SYRINGE 105 MG IV (17:52)
[2024-02-06] MEDS: LACTATED RINGERS 1000ML 1,000 ML 999 ML IV (17:53)
[2024-02-06] MEDS: OXYCODONE 5MG IMMEDIATE RELEASE TABLET 10 MG PO (18:04)
--- NOTE | 2024-02-06 18:11 | PC.NURSE ---
Called [facility] at this time. awaiting call back.
[2024-02-06] MEDS: KETOROLAC 30MG/ML VIAL 30 MG IV (19:13)
== END 2024-02-06 18:45 | disposition home or self-care (01) ==
PROVIDERS: Emergency Provider Emergency Medicine
DX: S52.501A Unspecified fracture of the lower end of right radius, initial encounter for closed fracture (principal); S52.611A Displaced fracture of right ulna styloid process, initial encounter for closed fracture; S61.011A Laceration without foreign body of right thumb without damage to nail, initial encounter; B19.20 Unspecified viral hepatitis C without hepatic coma; F17.210 Nicotine dependence, cigarettes, uncomplicated; W19.XXXA Unspecified fall, initial encounter; Z23 Encounter for immunization
CPT/HCPCS: 73080; 73090; 73100; 73110; 73130; 90471; 90715; 96361; 96374; 96375; 99285; J2405

== ENCOUNTER 2024-02-17 20:10 | Emergency (ER) | payer MEDICAID, SELFPAY ==
[2024-02-17 20:11] VITALS: BP 144/84; PULSE 78; RESP 18; TEMP 36.8; O2SAT 98; BMI 23.5
--- NOTE | 2024-02-17 20:49 | ED_ITS ---
Discharge Plan Disposition Patient Disposition: Home, Self-Care Prescriptions Prescriptions: No Action methocarbamol 500 mg tablet 500 mg PO TID PRN (Reason: muscle spasm) Qty: 15 0RF oxycodone 10 mg tablet 10 mg PO Q8H PRN (Reason: pain) Qty: 12 0RF Referrals Follow up/Referrals: Provider,Referral, [Primary Care Provider] - See instructions Activity Restrictions/Add. Instructions Additional Instructions/Restrictions: Your blood pressure spontaneously normalized in the emergency department without any evidence of acute endorgan damage as discussed. Please keep a blood pressure log as discussed and follow-up with primary care doctor. Van the chronic hepatitis C virus you had a positive viral load in 2019 this has been repeated in addition to baseline labs. I have contacted the team at [facility] that should be calling you within the next few days to arrange follow-up. Specifically your repeat HCVRNA which is your virus test will take 1 to 2 weeks to return which will demonstrate whether or not you need to be treated for chronic infection. Clinical Impressions Clinical Impression: Asymptomatic hypertension, Chronic hepatitis C virus infection Discharge ED Provider: Lisa Perez General Adult HPI General Chief complaint: PAIN Stated complaint: elevated blood pressure, headache Time Seen by Provider: 02/17/24 20:22 Mode of Arrival: Ambulatory Source of Information: Patient Limitations: No Limitations Description of Symptoms (Recalled from ER Triage Doc. by RN): Pt presents with concern for her BP, states it was 251/129 at home. Pt states she has a headache and is 2 days post op from a wrist fusion done at [place] by Dr Holliday. She states her pain is the reason her BP is elevated, they gave her 5/325 Hydrocodone, last dose at 1700. BP is currently 144/84 History of Present Illness HPI narrative: Patient is a 58-year-old female presenting today with hypertension. Recently had a wrist fracture was transferred to [facility] and had a wrist fusion that was done yesterday. She has been prescribed significant amounts of hydrocodone recently took her medications several hours ago but came into the emergency department because her hypertension. Does not have a history of hypertension. Of note patient does also have a history of chronic hepatitis C for which she has not been treated most recent viral load was positive in 2019 has not been repeated. 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 Related Data Previous Rx's Medication Instructions Recorded methocarbamol 500 mg tablet 500 mg PO TID PRN muscle spasm #15 09/02/23 tabs oxycodone 10 mg tablet 10 mg PO Q8H PRN pain #12 tabs 02/06/24 Allergies Allergy/AdvReac Type Severity Reaction Status Date / Time No Known Allergies Allergy Verified 03/30/19 14:31 [facility] Disclaimer: The information contained in this section may have been updated after the patient was seen, as this information can be updated by other users. Medical History History of alcohol abuse Chronic pain Right shoulder pain Fatigue Hepatitis C Social History Smoking Status: Current every day smoker tobacco type: cigarettes packs per da y: 1 alcohol intake: never substance use type: denies use current occupational status: other Travel in the last 8 weeks: None ROS Obtained: Yes All systems reviewed & no additional complaints except as documented Physical Exam General General appearance: alert and in no apparent distress Respiratory Respiratory exam: Present normal lung sounds bilaterally; Absent respiratory distress Cardiovascular Cardiovascular exam: Present regular rate and normal rhythm Abdominal Exam Abdominal exam: Present soft; Absent distention or tenderness Neurological Exam Neurological exam: Present alert, oriented X3, CN II-XII intact and normal gait; Absent motor sensory deficit Medical Decision Making Mike Inquiry Pt receiving controlled substance: No Vital Signs: 02/17/24 20:11 Temperature 98.3 F Temperature Source Oral Pulse Rate [Left] 78 Respiratory Rate 18 Blood Pressure [Right Arm] 144/84 H Blood Pressure Mean [Right Arm] 104 Blood Pressure Source [Right Arm] Automatic Cuff Blood Pressure Position [Right Arm] Sitting 02 Sat by Pulse Oximetry 98 Oxygen Delivery Method Room Air Orders (Tests/Meds): ORDERS Category Date Time Status CBC w/Auto Diff [Complete Blood Count Auto Diff] Stat Lab 02/17/24 20:37 Ordered CMP [Comprehensive Metabolic Panel] Stat Lab 02/17/24 20:37 Ordered HCV RNA PCR, Quant Stat Lab 02/17/24 20:37 Ordered PT/PTT Stat Lab 02/17/24 20:37 Ordered Medical Decision Narrative: Patient with above history and physical normal neurologic exam and cardiovascular exam no clinical evidence of endorgan damage no indication for acute lowering of blood pressure. Pain was most likely the cause of her hypertension at home. Discussed with her the calibration of her device at home as well as taking a blood pressure log for further intervention downstream of the primary care doctor. Regarding hepatitis C had discussed with her having repeat labs specifically for evaluating whether not she is chronically viremic and getting baseline evaluation for the possibility of treating her. I have given her information to the [facility] hepatitis C treatment program they will contact her for follow-up. She was discharged in stable condition. Critical Care Critical Care Time Critical Care Time: No
[2024-02-17 20:52] VITALS: BP 118/77; PULSE 81; RESP 18; TEMP 36.8; O2SAT 96
[2024-02-17 20:57] LABS: Basophils # 0.2 K/mm3 (0-0.2); Basophils % 1.4 % (0.1-2.0); Eosinophils # 0.1 K/mm3 (0.0-0.4); Eosinophils % 0.7 % (0.1-12.0); Hematocrit 43.7 % (37.0-47.0); Hemoglobin 14.2 g/dL (12.2-16.2); Lymphocytes # 3.8 K/mm3 (0.7-4.5); Lymphocytes % 31.2 % (10-50); Mean Corpuscular HGB Conc 32.4 g/dL (31.8-35.4); Mean Corpuscular Hemoglobin 32.4 pg (27.0-31.2); Mean Platelet Volume 8.1 fl (7.4-10.4); Monocytes # 0.8 K/mm3 (0.1-1.0); Monocytes % 6.1 % (1.7-9.3); Neutrophils # 7.4 K/mm3 (1.8-7.8); Neutrophils % 60.6 % (37.0-80.0); Platelet Count 264 K/mm3 (142-424); Red Blood Count 4.37 M/mm3 (4.20-5.40); Red Cell Distribution Width 12.8 % (11.5-17.5); White Blood Count 12.3 K/mm3 (4.8-10.8)
[2024-02-17 21:04] LABS: Alanine Aminotransferase 30 U/L (12-78); Albumin Level 4.5 g/dl (3.5-5.0); Albumin/Globulin Ratio 1.4 (1.1-1.8); Alkaline Phosphatase 89 U/L (38-126); Anion Gap 8.9 mEq/L (5-15); Aspartate Amino Transferase 43 U/L (14-36); Bilirubin,Total 0.8 mg/dl (0.2-1.3); Blood Urea Nitrogen 11 mg/dl (7-17); Calcium 9.7 mg/dl (8.4-10.2); Carbon Dioxide 25 mmol/L (22.0-30.0); Chloride 107 mmol/L (98-107); Creatinine Clearance Estimated 108 mL/min (50-200); Estimated Glomerular Filt Rate 102 ml/min (>60); GFR (African American) 124 ML/MIN (>60); Globulin 3.2 g/dL (1.3-3.2); Glucose 99 mg/dl (74-100); Potassium 3.9 mmoL/L (3.5-5.1); Sodium 137 mmol/L (136-145); Total Protein,Serum 7.7 g/dl (6.3-8.2)
[2024-02-17 21:06] LABS: Activated Partial Thrombo Time 27.9 seconds (22.8-30.6); INR 0.96 (0.9-1.1); Prothrombin Time 10.4 seconds (10.1-12.5)
== END 2024-02-17 20:53 | disposition home or self-care (01) ==
PROVIDERS: Emergency Provider Student in an Organized Health Care Education/Training Program
DX: R51.9 Headache, unspecified (principal); B18.2 Chronic viral hepatitis C; I10 Essential (primary) hypertension; F17.210 Nicotine dependence, cigarettes, uncomplicated
CPT/HCPCS: 80053; 85025; 85610; 85730; 87522; 99283

== ENCOUNTER 2024-03-01 10:22 | Outpatient (CLI) | payer MEDICAID, SELFPAY ==
--- NOTE | 2024-03-01 10:29 | US_ITS ---
FINAL REPORT CLINICAL HISTORY: CHRONIC HEPATITIS C,LIVER DISEASE,H/O ALCOHOL ABUSE COMPARISON: None FINDINGS: Sonographic images of the right upper quadrant were obtained. The pancreas is partially obscured. There is increased echogenicity in the liver consistent with mild fatty infiltration of the liver. The gallbladder appears septated but otherwise normal without evidence of gallstones.There is no evidence of biliary ductal dilatation.The common duct measures 4mm. Limited images of the right kidney are unremarkable. IMPRESSION: Mild changes of fatty infiltration of the liver. Reviewed, Interpreted and Dictated by Clovis Lew MD Transcribed by Lavonne Hopson Authenticated and [facility]
[2024-03-02 06:12] LABS: HIV Screen 4th Generation wRfx Non Reactive (Non Reactive)
[2024-03-02 08:33] LABS: Hep B Core Ab, Total Negative (Negative)
[2024-03-05 08:20] LABS: HCV Genotype Charge YES; Hepatitis C Genotype 1a (.)
[2024-03-05 10:03] LABS: Hepatitis B Surface Antigen Negative
== END 2024-03-01 23:59 | disposition home or self-care (01) ==
PROVIDERS: PCP Nurse Practitioner Acute Care; Visit Provider Nurse Practitioner Acute Care
DX: B18.2 Chronic viral hepatitis C (principal); K74.02 Hepatic fibrosis, advanced fibrosis; F10.11 Alcohol abuse, in remission; K76.9 Liver disease, unspecified
CPT/HCPCS: 36415; 76705; 86703; 86704; 87340; 87522; 87902; G0432

== ENCOUNTER 2024-09-06 12:00 | Outpatient (CLI) | payer MEDICAID, SELFPAY ==
[2024-09-06 12:32] LABS: Hematocrit 44.9 % (37.0-47.0); Hemoglobin 15.3 g/dL (12.2-16.2); Mean Corpuscular Hemoglobin 32.5 pg (27.0-31.2); Mean Corpuscular Volume 95.7 fl (81-99); Platelet Count 248 K/mm3 (142-424); Red Blood Count 4.69 M/mm3 (4.20-5.40); White Blood Count 8.5 K/mm3 (4.8-10.8)
[2024-09-06 13:08] LABS: Albumin Level 5.1 g/dl (3.5-5.0); Chloride 102 mmol/L (98-107); Potassium 4.6 mmoL/L (3.5-5.1); Sodium 137 mmol/L (136-145)
[2024-09-06 13:11] LABS: Alanine Aminotransferase 14 U/L (12-78); Albumin/Globulin Ratio 1.6 (1.1-1.8); Alkaline Phosphatase 90 U/L (38-126); Anion Gap 14.6 mEq/L (5-15); Aspartate Amino Transferase 26 U/L (14-36); Bilirubin,Total 0.6 mg/dl (0.2-1.3); Blood Urea Nitrogen 12 mg/dl (7-17); Carbon Dioxide 25 mmol/L (22.0-30.0); Estimated Glomerular Filt Rate 86 ml/min (>60); GFR (African American) 104 ML/MIN (>60); Globulin 3.2 g/dL (1.3-3.2); Total Protein,Serum 8.3 g/dl (6.3-8.2)
[2024-09-06 13:12] LABS: Calcium 9.9 mg/dl (8.4-10.2); Glucose 99 mg/dl (74-100)
[2024-09-06 14:57] LABS: INR 0.97 (0.9-1.1); Prothrombin Time 10.9 seconds (10.1-12.5)
== END 2024-09-06 23:59 | disposition home or self-care (01) ==
LOC: LAB 12:02
PROVIDERS: Visit Provider Nurse Practitioner Acute Care
DX: B18.2 Chronic viral hepatitis C (principal)
CPT/HCPCS: 36415; 80053; 85027; 85610; 87522

== ENCOUNTER 2024-10-23 23:03 | Emergency (ER) | payer MEDICAID, SELFPAY ==
[2024-10-23 23:04] VITALS: BP 124/81; PULSE 92; RESP 18; TEMP 36.6; O2SAT 100; BMI 22.7
[2024-10-23 23:15] VITALS: BP 124/81; PULSE 92; O2SAT 99
--- NOTE | 2024-10-23 23:19 | XR_ITS ---
PROCEDURE INFORMATION: Exam: XR Left Wrist Exam date and time: 10/23/2024 11:20 PM Age: 59 years old Clinical indication: Injury or trauma; Fall; Blunt trauma (contusions or hematomas); Wrist; Left; Additional info: [employer] TECHNIQUE: Imaging protocol: Radiologic exam of the left wrist. Views: 3 or more views. COMPARISON: CR XR WRIST LT MIN 3V 10/23/2024 11:20 PM FINDINGS: Bones/joints: There is a subtle cortical undulation of the distal radial metaphysis which is concerning for a impacted fracture, please correlate for point tenderness. Soft tissues: Normal. IMPRESSION: There is a subtle cortical undulation of the distal radial metaphysis which is concerning for a impacted fracture, please correlate for point tenderness.
--- NOTE | 2024-10-23 23:19 | XR_ITS ---
PROCEDURE INFORMATION: Exam: XR Left Forearm Exam date and time: 10/23/2024 11:20 PM Age: 59 years old Clinical indication: Injury or trauma; Fall; Blunt trauma (contusions or hematomas); Arm, lower; Left; Additional info: [employer] TECHNIQUE: Imaging protocol: Radiologic exam of the left forearm. Views: 2 views. COMPARISON: CR XR FOREARM LT 2V 10/23/2024 11:20 PM FINDINGS: Bones/joints: More definitively seen on the hand and wrist films, there is an impacted distal radial metaphyseal fracture. Soft tissues: Normal. IMPRESSION: More definitively seen than on the hand and wrist films, there is an impacted distal radial metaphyseal fracture.
--- NOTE | 2024-10-23 23:19 | XR_ITS ---
PROCEDURE INFORMATION: Exam: XR Left Hand Exam date and time: 10/23/2024 11:20 PM Age: 59 years old Clinical indication: Injury or trauma; Fall; Blunt trauma (contusions or hematomas); Wrist; Left; Additional info: [employer] TECHNIQUE: Imaging protocol: Radiologic exam of the left hand. Views: 3 or more views. COMPARISON: CR XR FOREARM LT 2V 10/23/2024 11:20 PM FINDINGS: Bones/joints: Cortical undulation of the distal radial metaphysis may reflect a impacted distal radial fracture. Soft tissues: Normal. IMPRESSION: Cortical undulation of the distal radial metaphysis may reflect a impacted distal radial fracture.
--- NOTE | 2024-10-23 23:48 | ED_ITS ---
Discharge Plan Disposition Patient Disposition: Home, Self-Care Condition: Good Prescriptions Prescriptions: New hydrocodone-acetaminophen 5-325 mg tablet 1 tab PO Q6H PRN (Reason: pain) Qty: 10 0RF No Action methocarbamol 500 mg tablet 500 mg PO TID PRN (Reason: muscle spasm) Qty: 15 0RF oxycodone 10 mg tablet 10 mg PO Q8H PRN (Reason: pain) Qty: 12 0RF Referrals Follow up/Referrals: Raymundo Kennedy DO [Staff Physician] - See instructions (L distal radius, in splint from ED, neurovascularly intact) Provider,Referral, [Primary Care Provider] - See instructions Activity Restrictions/Add. Instructions Additional Instructions/Restrictions: Keep the splint clean and dry, do not apply pressure to it or get it wet as this will cause the splint to malfunction and need to be replaced. Wear the sling for support. Take Tylenol or ibuprofen if needed for pain, do not exceed the recommended dose on the bottle. If the Tylenol and ibuprofen are not controlling your pain, then take the [place]. Be aware that [place] contains acetaminophen (Tylenol), so be mindful of this when dosing Tylenol. Do not exceed 3000 mg of Tylenol in 1 day. Drink water and eat a small snack each time you take these medications to avoid side effects. Do not drive or operate machinery after taking [place] as it may make you sleepy and cloud your judgment. This medication can also cause constipation. Make an appointment with Dr. Kennedy's office as soon as possible for reevaluation. A referral has been placed for this purpose. Return to the ER with new, worsening, or otherwise concerning symptoms, or if you have concerns about your splints. Clinical Impressions Clinical Impression: Closed fracture of left distal radius Print Language Print Language: Greenlandic Discharge ED Provider: Tracie Dailey General Adult HPI General Chief complaint: Extremity Injury, Upper Stated complaint: AO 2030 fall left arm injury Time Seen by Provider: 10/23/24 23:19 Mode of Arrival: Ambulatory Source of Information: Patient Limitations: No Limitations Description of Symptoms (Recalled from ER Triage Doc. by RN): Pt c/o L sided wrist/FA pain s/p mechanical fall while rollerskating this evening. Pt denies hitting head or other injuries. NO obvious deformity noted, skin intact. History of Present Illness HPI narrative: 59-year-old female presents to the ER with complaints of left wrist pain after falling while rollerskating. Patient states she was out with her grandchildren zhen when she lost her balance, she started to fall backwards and extended her arms behind her. She states her left arm took the majority of the impact and she felt acute pain in the left wrist. She denies hitting her head, no loss of consciousness, no blood thinners. Patient denies any neck pain, back pain, or other aches and pains, she is complaining of isolated pain at the left wrist. She states she sustained the injury around 8:30 PM, went home and tried to ignore the pain however was unable to. She states around 9:30 PM she took an old oxycodone from when she broke her right arm earlier this year. She states her pain was somewhat improved but absent so she came to the ER for evaluation a t the encouragement of her family. Patient reports she has no numbness, tingling, or weakness in the hand, she just has focal pain in the wrist. Patient denies any other pain or symptoms of injury elsewhere in the body. Related Data Previous Rx's ?Medication ?Instructions ?Recorded methocarbamol 500 mg tablet 500 mg PO TID PRN muscle spasm #15 09/02/23 tabs oxycodone 10 mg tablet 10 mg PO Q8H PRN pain #12 tabs 02/06/24 hydrocodone 5 mg-acetaminophen 325 1 tab PO Q6H PRN pain #10 tabs 10/24/24 mg tablet Allergies Allergy/AdvReac Type Severity Reaction Status Date / Time No Known Allergies Allergy Verified 03/30/19 14:31 [facility] Disclaimer: The information contained in this section may have been updated after the patient was seen, as this information can be updated by other users. Medical History History of alcohol abuse Chronic pain Right shoulder pain Fatigue Hepatitis C Social History Smoking Status: Current every day smoker tobacco type: cigarettes packs per day: 1 alcohol intake: never substance use type: denies use current occupational status: other Travel in the last 8 weeks: None Have you lived/traveled outside [place] in past 30 days?: No Contact w/someone who lives/traveled outside US past 30 days?: No Exposure to someone with infectious disease in past 14 days?: No Do you have a fever (greater than 100.4 F or 38 C)?: No Have you tested positive for COVID-19: No Exposed to someone with COVID-19 in past 14 days?: No Do you have a sore throat?: No Do you have a cough?: No Do you have any weakness?: No Do you have any diarrhea?: No Are you experiencing any unusual bleeding?: No Do you have any muscle aches/pain?: No Do you have any abdominal pain?: No Are you experiencing loss of taste or smell?: No Other Medical History Have you received the Flu Vaccine for this season: No Have you received the Pneumonia Vaccine: No ROS Obtained: Yes Systems reviewed as appropriate & no additional complaints except as documented ROS per HPI Physical Exam General General appearance: alert and in no apparent distress Head Head exam: atraumatic and normocephalic Eye Eye exam: Present PERRL and EOMI ENT ENT exam: Present mucous membranes moist Neck Neck exam: Present normal inspection and full ROM; Absent tenderness Chest Chest inspection: Present symmetric chest wall rise Respiratory Respiratory exam: Present normal lung sounds bilaterally; Absent respiratory distress, wheezes or stridor Cardiovascular Cardiovascular exam: Present regular rate and normal rhythm Abdominal Exam Abdominal exam: Present soft; Absent distention or tenderness Extremities Exam Extremities exam: Present tenderness (Tenderness to palpation of the left distal radius, no ulnar tenderness, no left scaphoid tenderness, no tenderness of the hand, elbow, shoulder, or humerus), normal capillary refill, joint swelling (Minimal swelling of the left wrist appreciated, no deformity) and other (Neurovascularly intact, patient able to fully flex and extend the hand, make a full fist, thumb opposition intact, 2+ pulses); Absent full ROM (Very limited range of motion of the left wrist secondary to pain, ROM and other extremities normal) Neurological Exam Neurological exam: Present alert, oriented X3, CN II-XII intact and normal gait; Absent motor sensory deficit Psychiatric Psychiatric exam: Present normal affect and normal mood Skin Skin exam: Present warm and dry Medical Decision Making Medical Records Medical records reviewed: Yes I reviewed the patient's medical records. Screening: Per USPSTF and CDC recommendations, given the prevalence of disease in our region, it is our hospital?s policy to screen for HIV and viral Hepatitis for all patients aged 18 and over and those with ongoing risk factors. MR Comment: According to my review of records, patient did not follow-up with orthopedics within our system with her right upper extremity injury earlier this year. Patient had been referred to Dr. Kennedy but was also referred to a provider in another system because Dr. Kennedy was unavailable at that time. Mike Inquiry Pt receiving controlled substance: Yes Mike was queried for this patient: Yes Reference #:: [id number] Risks and benefits of using a controlled substance: were discussed with pt by me Comment: most recent prescriptions from . Vital Signs: 10/23/24 23:04 10/23/24 23:15 10/24/24 00:46 Temperature 98 F 98 F Temperature Source Tympanic Oral Pulse Rate 92 H 80 Pulse Rate [Apical] 92 H Respiratory Rate 18 20 Blood Pressure 124/81 116/66 Blood Pressure [Right Arm] 124/81 Blood Pressure Mean [Right Arm] 95 02 Sat by Pulse Oximetry 100 99 Oxygen Delivery Method Room Air Room Air Orders (Tests/Meds): ED MEDICATIONS Discontinued Medications Generic Name Dose Route Start Last Admin Trade Name Freq PRN Reason Stop Dose Admin Oxycodone HCl 5 mg 10/24/24 00:13 10/24/24 00:38 Oxycodone 5mg Immediate Release Tablet PO 11/23/24 00:12 5 mg Q4HP PRN Administration Severe Pain (7-10) ORDERS Category Date Time Status Forearm XR left 2 views [XR forearm LT 2V] Stat Exams 10/23/24 23:19 Completed Hand XR left minimum 3 views [XR hand LT min 3V] Stat Exams 10/23/24 23:19 Completed Wrist XR left minimum 3 views [XR wrist LT min 3V] Stat Exams 10/23/24 23:19 Completed HIV (1&2) Antibody Rapid Stat Lab 10/23/24 23:16 Ordered Hep C Ab with Reflex to RNA Stat Lab 10/23/24 23:16 Ordered Medical Decision Narrative: In summary, this 59-year-old female with history of right upper extremity fracture earlier this year presents to the emergency department today with left wrist pain after fall on outstretched hand. On initial evaluation patient is hemodynamically stable, afebrile, overall her physical exam is very benign aside from tenderness without significant deformity or swelling of the left wrist, neurovascularly intact. Differential diagnosis includes but is not limited to fracture, dislocation, I considered the possibility of neurovascular injury but do not appreciate one on exam, also considered possibility of soft tissue injury like sprain. Based on these concerns, I ordered x-ray left upper extremity. Patient received oral oxycodone for treatment of pain. X-rays personally interpreted demonstrate impacted left distal radius fracture without significant displacement or angulation, see radiology read for final interpretation. Sugar-tong splint was applied by me to the left upper extremity, see procedure note for details. Patient tolerated procedure well. Neurovascularly intact before and after procedure. Patient was placed in a sling for support. She was given referral to orthopedics for outpatient follow-up. I prescribed hydrocodone for outpatient management of severe pain and patient was given explicit instructions on how to take these medications as well as the risks of them. Patient was given instructions on symptomatic management, splint care instructions, follow up instructions, and return precautions for the emergency department. Patient indicated understanding and was discharged in stable condition. Procedures Orthopedic Splinting/Casting Injury #1: Side: left Upper Extremity Injury Location: forearm Upper Extremity Immobilizer: sugar tong splint (Stocking, soft roll, Ortho-Glass, Aamir wrap used for splint) Additional Comments: Splint personally applied and adjusted by me. Post Cast/Splinting Neuro Status: intact and no change Post Cast/Splinting Vasc Status: intact and no change Critical Care Critical Care Time Critical Care Time: No
[2024-10-24] MEDS: OXYCODONE 5MG IMMEDIATE RELEASE TABLET 5 MG PO (00:38)
--- NOTE | 2024-10-24 00:43 | PC.NURSE ---
Assisted Dr. Dailey in placing a sugar tongue splint on this pt. PMS assessed after placing splint with no issues.
[2024-10-24 00:46] VITALS: BP 116/66; PULSE 80; RESP 20; TEMP 36.6; O2SAT 98
== END 2024-10-24 00:47 | disposition home or self-care (01) ==
PROVIDERS: Emergency Provider Emergency Medicine
DX: S52.502A Unspecified fracture of the lower end of left radius, initial encounter for closed fracture (principal); M25.532 Pain in left wrist; M79.602 Pain in left arm; W01.0XXA Fall on same level from slipping, tripping and stumbling without subsequent striking against object, initial encounter; Y93.51 Activity, roller skating (inline) and skateboarding; Y92.89 Other specified places as the place of occurrence of the external cause
CPT/HCPCS: 29125; 73090; 73110; 73130; 99283

== ENCOUNTER 2024-11-16 13:29 | Outpatient (CLI) | payer MEDICAID, SELFPAY ==
--- NOTE | 2024-11-16 13:37 | XR_ITS ---
FINAL REPORT CLINICAL HISTORY: f/u Left wrist fx COMPARISON: 10/23/2024 FINDINGS: LEFT WRIST Three views demonstrate no acute fracture or dislocation. There is minimal impaction of the distal radial metaphysis also noted on the prior exam of 10/23/2024, with impaction/buckling slightly more evident than seen on the prior exam. This may be secondary to healing fracture. The visualized joint spaces are normally aligned. The soft tissues are unremarkable. IMPRESSION: Distal radial metaphysis fracture, with impaction/buckling slightly more evident than seen on the prior exam. Reviewed, Interpreted and Dictated by Clovis Lew MD Transcribed by Lavonne Hopson Authenticated and [facility]
== END 2024-11-16 23:59 | disposition home or self-care (01) ==
LOC: RAD 13:30
PROVIDERS: Visit Provider Physician Assistant
DX: M25.532 Pain in left wrist (principal); S52.502A Unspecified fracture of the lower end of left radius, initial encounter for closed fracture
CPT/HCPCS: 73110

== ENCOUNTER 2024-12-07 13:10 | Outpatient (CLI) | payer MEDICAID, SELFPAY ==
--- NOTE | 2024-12-07 13:17 | XR_ITS ---
FINAL REPORT CLINICAL HISTORY: Lt Wrist Fx COMPARISON: 11/16/2024 FINDINGS: LEFT WRIST Three views demonstrate a transverse mildly impacted fracture of the distal radial metaphysis. Healing fracture is seen in the margins. The joint spaces are preserved. The soft tissues are unremarkable. IMPRESSION: Healing distal radial fracture. Reviewed, Interpreted and Dictated by Clovis Lew MD Transcribed by Sandra Porras Authenticated and [facility]
== END 2024-12-07 23:59 | disposition home or self-care (01) ==
LOC: RAD 13:13
PROVIDERS: Visit Provider Physician Assistant
DX: M25.532 Pain in left wrist (principal); S52.502A Unspecified fracture of the lower end of left radius, initial encounter for closed fracture
CPT/HCPCS: 73110

== ENCOUNTER 2024-12-22 13:32 | Outpatient (CLI) | payer MEDICAID, SELFPAY ==
--- NOTE | 2024-12-22 13:41 | XR_ITS ---
FINAL REPORT CLINICAL HISTORY: left wrist fx COMPARISON: 12/07/2024 FINDINGS: AP, oblique, and lateral views of the left wrist were obtained. There is no significant change in the distal radial fracture noted on the prior exam of December 07. No new bony abnormality is identified. The joint spaces are preserved. The soft tissues are improved since the prior exam. IMPRESSION: Distal radial fracture stable, with slight decrease in soft tissue swelling since the prior exam. Reviewed, Interpreted and Dictated by Ana Maria Juan MD Transcribed by Lavonne Hopson Authenticated and [facility]
== END 2024-12-22 23:59 | disposition home or self-care (01) ==
LOC: RAD 13:33
PROVIDERS: Visit Provider Physician Assistant
DX: M25.532 Pain in left wrist (principal); S52.502A Unspecified fracture of the lower end of left radius, initial encounter for closed fracture
CPT/HCPCS: 73110

== ENCOUNTER 2025-01-25 13:16 | Outpatient (CLI) | payer MEDICAID, SELFPAY ==
--- NOTE | 2025-01-25 13:23 | XR_ITS ---
FINAL REPORT CLINICAL HISTORY: left wrist distal radial fracture COMPARISON: 12/22/2024 FINDINGS: LEFT WRIST THREE VIEW FINDINGS: Three views again show a transverse mildly impacted fracture of the distal radius. There is slight increased sclerosis at the fracture site indicating continued fracture healing. No further deformity is noted. There is mild osteopenia. The joint spaces appear normal. IMPRESSION: Further healing distal radial fracture. Reviewed, Interpreted and Dictated by Alesha Conway MD Transcribed by Sandra Porras Authenticated and . [facility]
== END 2025-01-25 23:59 | disposition home or self-care (01) ==
LOC: RAD 13:17
PROVIDERS: Visit Provider Physician Assistant
DX: M25.532 Pain in left wrist (principal); S52.502A Unspecified fracture of the lower end of left radius, initial encounter for closed fracture
CPT/HCPCS: 73110

== ENCOUNTER 2025-03-09 12:51 | Outpatient (CLI) | payer MEDICAID, SELFPAY ==
[2025-03-09 13:24] LABS: INR 0.96 (0.9-1.1); Prothrombin Time 10.8 seconds (10.1-12.5)
[2025-03-09 14:07] LABS: Albumin Level 5.3 g/dl (3.5-5.0); Chloride 104 mmol/L (98-107); Potassium 4.5 mmoL/L (3.5-5.1); Sodium 138 mmol/L (136-145)
[2025-03-09 14:10] LABS: Alanine Aminotransferase 13 U/L (12-78); Albumin/Globulin Ratio 2.1 (1.1-1.8); Alkaline Phosphatase 105 U/L (38-126); Anion Gap 11.5 mEq/L (5-15); Aspartate Amino Transferase 23 U/L (14-36); Bilirubin,Total 0.4 mg/dl (0.2-1.3); Blood Urea Nitrogen 12 mg/dl (7-17); Calcium 10.6 mg/dl (8.4-10.2); Carbon Dioxide 27 mmol/L (22.0-30.0); Estimated Glomerular Filt Rate 85 ml/min (>60); GFR (African American) 103 ML/MIN (>60); Globulin 2.5 g/dL (1.3-3.2); Glucose 102 mg/dl (74-100); Total Protein,Serum 7.8 g/dl (6.3-8.2)
== END 2025-03-09 23:59 | disposition home or self-care (01) ==
LOC: LAB 12:52
PROVIDERS: Visit Provider Nurse Practitioner Acute Care
DX: B18.2 Chronic viral hepatitis C (principal)
CPT/HCPCS: 36415; 80053; 85610; 87522